=== PATIENT | female | born 1985 | race Caucasian/White ===

== ENCOUNTER 2016-05-06 04:04 | Inpatient (IN) | payer OTHER ==
[2016-05-06] MEDS ORDERED: MINERAL OIL 60 ML OIL TP PRN (04:18)
[2016-05-06] MEDS ORDERED: TERBUTALINE SULFATE 1 MG/ML VIAL IV PRN (04:18)
[2016-05-06] MEDS ORDERED: OXYTOCIN/RINGERS LACTATE 1,000 ML IV PRN (04:18)
[2016-05-06] MEDS ORDERED: LR 1,000 ML IV PRN (04:18)
[2016-05-06] MEDS ORDERED: LIDOCAINE 1% 30 ML SDV SC PRN (04:18)
[2016-05-06] MEDS ORDERED: EPSOM SALT 454 GM TP PRN (04:18)
[2016-05-06] MEDS ORDERED: IBUPROFEN 600 MG TAB PO PRN (04:18)
[2016-05-06] MEDS ORDERED: LIDOCAINE 1% 30 ML SDV ONE (04:21)
[2016-05-06] MEDS ORDERED: TERBUTALINE SULFATE 1 MG/ML VIAL ONE (04:22)
[2016-05-06] MEDS ORDERED: AMMONIA AROMATIC 1 EACH AMP IH ONE (04:22)
[2016-05-06] MEDS ORDERED: MISOPROSTOL 200 MCG TAB ONE (04:22)
[2016-05-06] MEDS ORDERED: OXYTOCIN 10 UNIT/ML VIAL ONE (04:22)
--- NOTE | 2016-05-06 04:34 | PDGENHP ---
History and Physical - Chief Complaint labor pains - History of Present Illness Patient is a 30 year old at 40 2/7 weeks who presents in active labor from [place]. + FM +contractions no vaginal bleeding no SROM. On exam patient is 8 cm with BBOW History Information - Allergies/Home Medication List Allergies/Adverse Reactions: gluten Allergy (Verified 05/06/16 04:18) Milk Containing Products [dairy] Allergy (Verified 05/06/16 04:17) Home Medications: None 04/02/09 [Last Taken Unknown] I have personally reviewed and updated: family history, medical history - Past Medical History no pertinent PMH - Surgical History Reports: no pertinent surgical hx - Social History Smoking Status: Never smoked Review of Systems ROS: 10pt was reviewed & negative except for what was stated in HPI & below Physical Exam Constitutional: no apparent distress, appears nourished, not in pain Eyes: PERRL, anicteric sclera, EOMI Ears, Nose, Mouth, Throat: moist mucous membranes, hearing normal, ears appear normal, no oral mucosal ulcers Cardiovascular: regular rate and rhythym, no murmur, rub, or gallop, No edema Respiratory: no respiratory distress, no rales or rhonchi, clear to auscultation , other (8/100/BBOW) Gastrointestinal: normoactive bowel sounds, soft, non-tender abdomen, no palpable masses, other (Gravid EFW 7lb Ultrasound schneider cephalic) Genitourinary: no bladder fullness, no bladder tenderness Skin: warm, normal color, no rashes or abrasions, no fluctuance, no induration, No mottled Musculoskeletal: full muscle strength, no muscle tenderness, normal joint ROM, no joint effusions Psychiatric: interacting appropriately, not anxious, not encephalopathic, thought process linear Lymph, Heme, Immunologic: no cervical LAD, no supraclavicular LAD Assessment & Plan Assessment: IUP at 40 2/7 weeks Active labor from [place] Has had all babies Desires no pain medication GBS unknown refusing antibiotics Plan: Admit to labor and delivery Anticipate vaginal delivery
[2016-05-06 04:48] LABS: % IMMATURE GRANULYOCYTES 0.9 % (0.0-1.1); ABSOLUTE IMMATURE GRANULOCYTES 0.11 10^3/uL (0.00-0.10); ADD DIFF? NO; ADD MORPH? NO; ADD SCAN? NO; ATYPICAL LYMPHOCYTE FLAG 0 (0-99); FRAGMENT RBC FLAG 0 (0-99); HEMATOCRIT 42.2 % (38.0-47.0); HEMOGLOBIN 14.4 g/dL (12.6-16.3); LEFT SHIFT FLG 10 (0-99); LIPEMIA HEMOLYSIS FLAG 90 (0-99); MEAN CELL HEMOGLOBIN CONCENTR. 34.1 g/dL (32.4-36.7); MEAN CELL VOLUME 87.9 fL (81.5-99.8); MEAN PLATELET VOLUME 9.3 fL (8.7-11.7); PLATELET CLUMPS FLAG 0 (0-99); PLATELET COUNT 220 10^3/uL (150-400); RED CELL DISTRIBUTION WIDTH 14.8 % (11.5-15.2)
[2016-05-06] MEDS ORDERED: DOCUSATE SODIUM 100 MG CAP PO PRN (05:29)
[2016-05-06] MEDS ORDERED: HYDROCODONE/APAP 5/325 TAB PO PRN (05:29)
[2016-05-06] MEDS ORDERED: OXYTOCIN/RINGERS LACTATE 1,000 ML IV SCH (05:30)
--- NOTE | 2016-05-06 05:35 | OBPROC ---
- Labor and Delivery Onset of Contractions Date: 05/06/16 Onset of Contractions Time: 00:00 Onset of Contractions Type: Spontaneous Rupture of Membranes Date: 05/06/16 Rupture of Membranes Time: 04:30 Rupture of Membranes Type: Spontaneous Amniotic Fluid Color: Clear Dilation Complete Time: 04:30 Delivery Type: Spontaneous Placenta Delivery Date: 05/06/16 Placenta Delivery Time: 04:19 EBL: 100 Complications: Nuchal Cord - Medications Labor Augmentation/Induction Meds Used: None Labor Augmentation/Induction Indication: Post Dates - [place] Info A Delivery Date: 05/06/16 Delivery Time: 05:05 Sex of : Female Score (1 Min): 8 Score (5 Min): 9
[2016-05-06 10:22] VITALS: BP 99/63; PULSE 78; RESP 18; TEMP 98; O2SAT 96
--- NOTE | 2016-05-06 17:49 | SOAPPROG ---
SOAP Progress Note Assessment/Plan: Assessment: PPD#0 s/p uncomplicated at term. Pt desires discharge home. Signed AMA paperwork to forgo observation of baby x 24 hours as GBS was unknown. Rh pos Declines flu and Tdap vaccines Plan: Discharge home Standard precautions given Follow-up with her CNM in [facility] 05/06/16 17:47 Subjective: Feeling wells, want to go home tonight. Denies pain or heavy bleeding. of colostrum going well, she also breastfed her other babies. Has follow-up with licensed acupuncturist in [facility]. Objective: Vital Signs Temp Pulse Resp BP Pulse Ox 36.6 C 78 18 99/63 L 96 05/06/16 09:30 05/06/16 09:30 05/06/16 09:30 05/06/16 09:30 05/06/16 09:30 Laboratory Results 05/06/16 04:27 05/05/16 05/06/16 05/07/16 05:59 05:59 05:59 Output Total 250 Balance -250 Gen: NAD Resp:Unlabored Breasts: soft Abd: soft, nontender, uterus firm below U Ext: no edema, warm - Pending Discharge Pending Discharge Within 24 Hours: Yes Pending Discharge Date: 05/07/16 Pending Discharge Time: 11:00 ICD10 Worksheet Patient Problems: Problems Problem Status Diagnosed Vaginal delivery Acute
== END 2016-05-06 18:00 | disposition home or self-care (01) | DRG 775 ==
LOC: FLD 04:04 → FOB 08:57
PROVIDERS: ADMIT Obstetrics & Gynecology; ATTEND Obstetrics & Gynecology
PROC: 10E0XZZ Delivery of Products of Conception, External Approach (ICD-10-PCS; principal; 2016-05-06)
DX: O69.9XX0 Labor and delivery complicated by cord complication, unspecified, not applicable or unspecified (principal); Z37.0 Single live birth; Z3A.40 40 weeks gestation of pregnancy
CPT/HCPCS: J2590; J3105